=== PATIENT | female | born 1945 | race Caucasian/White ===

== ENCOUNTER 2020-02-19 11:38 | Outpatient (CLI) | payer MEDICARE, SELFPAY ==
--- NOTE | 2020-02-19 11:46 | MM_ITS ---
WS: [id number] BILATERAL DIGITAL SCREENING MAMMOGRAPHY WITH CAD CLINICAL INFORMATION: SCREENING HISTORY: Screening mammogram. No current complaints. COMPARISON: TECHNIQUE: Bilateral CC and MLO views. FINDINGS: Scattered fibroglandular densities bilaterally. No suspicious focal mass, asymmetry, calcifications, or architectural distortion. No evidence of malignancy. Punctate and secretory calcifications.. Inver lovely Nipples unchanged. MM/[place] [id number] IMPRESSION: BI-RADS: 2-Benign FOLLOW UP: 1 Year Follow-up Recommend return to annual screening mammography.
== END 2020-02-19 11:39 | disposition home or self-care (01) ==
LOC: RADSHAW 11:45
PROVIDERS: PCP Family Medicine; Visit Provider Family Medicine
DX: Z12.31 Encounter for screening mammogram for malignant neoplasm of breast (principal)
CPT/HCPCS: 77067

== ENCOUNTER 2020-05-08 16:57 | Emergency (ER) | payer MEDICARE, SELFPAY ==
[2020-05-08 17:08] VITALS: BP 133/83; PULSE 89; RESP 18; TEMP 37.3; O2SAT 92; BMI 26.6
--- NOTE | 2020-05-08 17:49 | XRR_ITS ---
PROCEDURE INFORMATION: Exam: XR Chest, 1 View Exam date and time: 05/08/2020 8:33 PM Age: 75 years old Clinical indication: Cough and fever and shortness of breath; Patient HX: Cough, fever, SOB TECHNIQUE: Imaging protocol: XR of the chest Views: 1 view. COMPARISON: No relevant prior studies available. FINDINGS: Lungs: Low lung volumes seen. There is is a linear parenchymal density in the left lower lobe . This may represent pleural fibrosis. Comparison to prior examination is recommended Pleural space: Unremarkable. No pleural effusion. No pneumothorax. Heart/Mediastinum: Unremarkable. No cardiomegaly. There is a hiatal hernia present Bones/joints: Unremarkable. XR/XR chest 1V portable [id number] IMPRESSION: No acute findings. Hiatal hernia Pleural fibrosis left lower lobe
[2020-05-08 18:09] LABS: ABG PH Result 7.48 (7.35-7.45); Arterial Blood Gas Hematocrit 40.6 % (37-47); Base Excess ABG 1.3 mmol/L (-2.0-2.0); Blood Gas Allen Test Pos; Blood Gas Operator Identificat ED; Blood Gas Sample Site Radial, left; Blood Gas Sample Type Arterial; Carboxyhemoglobin 1.3 %THgb (0.4-20.1); HCO3 ABG 24.3 mmol/L (22-26); HGB O2 Sat 91.5 % (95-100); Methemoglobin 0.6 % (0.4-1.5); Total Hemoglobin 13.3 g/dL (12-16)
[2020-05-08 20:01] VITALS: BP 159/84; PULSE 102; RESP 22; O2SAT 91
--- NOTE | 2020-05-08 20:06 | ECG_ITS ---
[facility] Test Date: 2020-05-08 Pat Name: Savanna Marsh Department: Room: Gender: Female Party Plan Demonstrator: : 1945 Requested By: Kenyatta Altamirano Order Number: [id number] Louise MD: Roxanne Lentz M.D. Measurements Intervals Cecil Rate: 86 P: [place]: -1 QRS: 98 QRSD: 100 T: 24 QT: 370 QTc: 443 Interpretive Statements SINUS RHYTHM BORDERLINE RIGHT AXIS DEVIATION [QRS AXIS > 90] INFERIOR MYOCARDIAL INFARCTION , PROBABLY OLD No previous ECG available for comparison Electronically Signed On 05-09-2020 8:11:14 CDT by Roxanne Lentz M.D. [email or web address] Classgalion community hospital.[employer]/store/OM/[id number]
--- NOTE | 2020-05-08 20:08 | W.ED.SOB ---
HPI - SOB/Dyspnea General: Chief Complaint: Shortness of Breath/Dyspnea Stated Complaint: FEVER,SOB,COUGH Time Seen by Provider: 05/08/20 19:58 Source: patient Mode of arrival: ambulatory Limitations: no limitations History of Present Illness: HPI Narrative: 75-year-old female who states she tested positive for COVID roughly 2 weeks ago. She states she is been having increasing body aches along with loss of taste and some dyspnea. Patient's pulse ox here is 92% on room air. She denies any vomiting or diarrhea. She has had low-grade fevers and body aches. She denies any chest pain. Associated symptoms: Deny abdominal pain, chest pain, nausea or vomiting Review of Systems Const: Reports: chills and body aches Eyes: Denies: blurry vision or eye discomfort ENMT: Denies: throat pain or dental pain Card: Denies: chest pain Resp: Reports: dyspnea GI: Denies: abdominal pain, nausea, vomiting or diarrhea : Denies: dysuria Musc: Denies: neck pain or back pain Skin/Breast: Denies: rash Neuro: Denies: headache(s) Psych: Denies: depression Schuyler/Lymph: Denies: easy bruising All/Imm: Denies: urticaria Physical Exam Const: COMMON NORMALS: no acute distress, patient oriented x3 and healthy appearing HENMT: COMMON NORMALS: normocephalic and atraumatic HEAD & SCALP: normocephalic and atraumatic Eye: COMMON NORMALS: Equal, round and reactive pupils present and EOMs intact bilaterally PUPIL: Yes Equal, round and reactive pupils present Neck/C-Spine: COMMON NORMALS: full ROM and supple Chest: COMMONS NORMALS: normal inspection of the chest and normal palpation of entire chest wall Resp: COMMON NORMALS: normal respiratory effort, No retractions, No use of accessory muscles and clear to auscultation bilaterally AUSCULTATION: clear to auscultation bilaterally Cardio: COMMON NORMALS: regular rate, regular rhythm and No murmurs present (Cardio) RATE: regular rate RHYTHM: regular rhythm GI: COMMON NORMALS: Normal to inspection, nondistended, normoactive bowel sounds present, Soft to palpation, non-tender and no masses PALPATION: Yes Soft to palpation Extremity: COMMON NORMALS: normal to inspection and full ROM Neuro: COMMON NORMALS: patient oriented x3, moves all extremities and no focal motor deficits Psych: COMMON NORMALS: mental status grossly normal, Normal thought process present and cooperative THOUGHT PROCESS: Normal thought process present Skin: COMMON NORMALS: no rashes or lesions noted and no wounds GENERAL SKIN EXAM: no rashes or lesions noted Course Vital Signs: Vital signs: Vital Signs Temperature 99.2 F 05/08/20 17:08 Pulse Rate 85 05/08/20 21:01 Respiratory Rate 19 H 05/08/20 21:01 Blood Pressure 122/71 05/08/20 21:01 Pulse Oximetry 90 05/08/20 21:01 MDM - SOB/Dyspnea MDM Narrative: Medical decision making narrative: There presents here shortness of breath likely from her COVID. X-ray shows no definite pneumonia but will start her on doxycycline. Patient inflammatory markers here are elevated and she is mildly hypoxic. I strongly recommended admission for her COVID. I informed her that we would have to transfer her as we have no beds. Patient states that she feels improved and does not want to be transferred. Patient is going to sign out AMA. She understands the risks including getting worse and even possible . She does have medical decision make capacity. Patient states that if she gets more short of breath she will return. She understands and agrees to plan. Lab Data: Labs: Lab Results 05/08/20 05/08/20 05/08/20 Range/Units 18:00 20:25 20:25 WBC 15.3 H (4.0-10.0) 10^3/ uL RBC 4.99 (4.1-5.3) 10^6/u L Hgb 13.3 (11.5-15.3) g/dL Hct 43.0 (37.0-47.0) % MCV 86.2 (81-99) fL MCH 26.7 L (28.0-34.0) pg MCHC 30.9 (30.0-36.0) g/dL RDW 15.9 H (12.1-15.1) % Plt Count 266 (130-400) 10^3/c mm MPV 11.6 H (7.4-10.4) fL Neut % (Auto) 75.4 % Lymph % (Auto) 15.0 % [place] % (Auto) 8.8 % Eos % (Auto) 0.1 % Baso % (Auto) 0.2 % Neut # (Auto) 11.54 H (1.8-7.7) 10^3/u L Lymph # (Auto) 2.3 (0.8-4.8) 10^3/u L [place] # (Auto) 1.4 H (0.2-0.9) 10^3/u L Eos # (Auto) 0.0 (0.0-0.8) 10^3/u L Baso # (Auto) 0.0 (0.0-0.1) 10^3/u L Nucleated RBC % (a uto) 0 % Nucleated RBCs # 0.0 /100WBC PT 15.00 H (12.1-14.9) SECO NDS INR 1.14 (0.8-1.2) Fibrinogen (174-498) mg/dL Specimen Type Arterial Sample Site Radial, left ABG pH 7.48 H (7.35-7.45) ABG pCO2 33.0 L (35-45) mmHg ABG pO2 62.0 L (80.0-100.0) mmH g ABG HCO3 24.3 (22-26) mmol/L ABG Base Excess 1.3 (-2.0-2.0) mmol/ L Aung Test Pos Hematocrit 40.6 (37-47) % Hgb O2 Saturation 91.5 L (95-100) % Carboxyhemoglobin 1.3 (0.4-20.1) %THgb Methemoglobin 0.6 (0.4-1.5) % Total Hemoglobin 13.3 (12-16) g/dL O2 Delivery Device None FiO2 21.0 % Mechanic Recovery ID Ed Sodium (136-145) mmol/L Potassium (3.5-5.1) mmol/L Chloride (98-107) mmol/L Carbon Dioxide (22-29) mmol/L Anion Gap (5-19) BUN (8-23) mg/dL Creatinine (0.5-0.9) mg/dL GFR Calculation Glucose (65-115) mg/dL Calculated Osmolal ity (285-295) mOsm/k g Calcium (8.5-10.5) mg/dL Total Bilirubin (0.15-1.2) mg/dL AST (0-32) U/L ALT (0-33) U/L Alkaline Phosphata se (35-105) IU/L C-Reactive Protein (0.0-4.9) mg/L NT-Pro-B Natriuret Pep (0-450) pg/mL Total Protein (6.6-8.7) g/dL Albumin (3.5-5.2) g/dL Globulin (1.3-4.6) g/dL 05/08/20 05/08/20 05/08/20 Range/Units 20:25 20:25 20:25 WBC (4.0-10.0) 10^3/ uL RBC (4.1-5.3) 10^6/u L Hgb (11.5-15.3) g/dL Hct (37.0-47.0) % MCV (81-99) fL MCH (28.0-34.0) pg MCHC (30.0-36.0) g/dL RDW (12.1-15.1) % Plt Count (130-400) 10^3/c mm MPV (7.4-10.4) fL Neut % (Auto) % Lymph % (Auto) % [place] % (Auto) % Eos % (Auto) % Baso % (Auto) % Neut # (Auto) (1.8-7.7) 10^3/u L Lymph # (Auto) (0.8-4.8) 10^3/u L [place] # (Auto) (0.2-0.9) 10^3/u L Eos # (Auto) (0.0-0.8) 10^3/u L Baso # (Auto) (0.0-0.1) 10^3/u L Nucleated RBC % (a uto) % Nucleated RBCs # /100WBC PT (12.1-14.9) SECO NDS INR (0.8-1.2) Fibrinogen 1123 H (174-498) mg/dL Specimen Type Sample Site ABG pH (7.35-7.45) ABG pCO2 (35-45) mmHg ABG pO2 (80.0-100.0) mmH g ABG HCO3 (22-26) mmol/L ABG Base Excess (-2.0-2.0) mmol/ L Aung Test Hematocrit (37-47) % Hgb O2 Saturation (95-100) % Carboxyhemoglobin (0.4-20.1) %THgb Methemoglobin (0.4-1.5) % Total Hemoglobin (12-16) g/dL O2 Delivery Device FiO2 % Mechanic Recovery ID Sodium 136 (136-145) mmol/L Potassium 4.4 (3.5-5.1) mmol/L Chloride 99 (98-107) mmol/L Carbon Dioxide 22 (22-29) mmol/L Anion Gap 19.4 H (5-19) BUN 19 (8-23) mg/dL Creatinine 0.9 (0.5-0.9) mg/dL GFR Calculation Not Reportable Glucose 123 H (65-115) mg/dL Calculated Osmolal ity 286 (285-295) mOsm/k g Calcium 9.0 (8.5-10.5) mg/dL Total Bilirubin 0.7 (0.15-1.2) mg/dL AST 29 (0-32) U/L ALT 19 (0-33) U/L Alkaline Phosphata se 83 (35-105) IU/L C-Reactive Protein 317.5 H (0.0-4.9) mg/L NT-Pro-B Natriuret Pep 200 (0-450) pg/mL Total Protein 7.6 (6.6-8.7) g/dL Albumin 3.7 (3.5-5.2) g/dL Globulin 3.9 (1.3-4.6) g/dL EKG Data^: EKG 1: Attestation: I personally reviewed and interpreted this EKG as follows: EKG Interpretation Date: 05/08/20 EKG interpretation time: 20:14 Interpretation: nsr hr [address] or t wave abnormalities qrs 100 qtc 413 Discharge Plan Discharge Patient Disposition: Left Against Medical Advice Clinical Impression: COVID-19 Condition: Stable Prescriptions: New doxycycline hyclate 100 mg tablet 100 mg PO BID 7 Days Qty: 14 RF: 0 No Action Stool Softener (docusate gareth) 240 mg Capsule 240 mg PO DAILY RF: 0 Aspirin Low Dose 81 mg Tablet,Delayed Release (Dr/Ec) 81 mg PO DAILY RF: 0 ibuprofen 200 mg Tablet 200 - 400 mg PO Q4H PRN (Reason: FEVER/PAIN) RF: 0 atenolol 50 mg tablet 50 mg PO DAILY RF: 0 Osteo Bi-Flex 250-200 mg Tablet 2 tab PO TID RF: 0 krill oil 1 tab PO DAILY RF: 0 Discharge Orders: Discharge Order (Routine); Ordered 05/08/20 Ordered By: Kenyatta Altamirano Referrals: Meagan Shah MD [Primary Care Provider] - 1-3 days Discharge Diet: Advance as tolerated Discharge Activity: Resume usual activity Patient Instructions: Upper Respiratory Infection (ED) Coding Level of Care Code ED Caustic Purification Operator for Chg Fwd Exam Comprehensive
[2020-05-08 20:37] LABS: Basophils % 0.2 %; Eosinophils % 0.1 %; Hemoglobin 13.3 g/dL (11.5-15.3); Lymphocytes # 2.3 10^3/uL (0.8-4.8); Mean Corpuscular HGB Conc 30.9 g/dL (30.0-36.0); Mean Corpuscular Hemoglobin 26.7 pg (28.0-34.0); Mean Corpuscular Volume 86.2 fL (81-99); Mean Platelet Volume 11.6 fL (7.4-10.4); Monocytes # 1.4 10^3/uL (0.2-0.9); Monocytes % 8.8 %; Neutrophils # 11.54 10^3/uL (1.8-7.7); Neutrophils % 75.4 %; Nucleated Red Blood Cells % 0 %; Platelet Count 266 10^3/cmm (130-400); Red Blood Count 4.99 10^6/uL (4.1-5.3); Red Cell Distribution Width 15.9 % (12.1-15.1); White Blood Count 15.3 10^3/uL (4.0-10.0)
[2020-05-08] MEDS: ketorolac 30 mg/mL INJ 10 MG IVP (20:47)
[2020-05-08] MEDS: dexamethasone 10 mg/mL INJ IVP (20:47)
[2020-05-08 20:58] LABS: INR 1.14 (0.8-1.2)
[2020-05-08 21:01] VITALS: BP 122/71; PULSE 85; RESP 19; O2SAT 90
[2020-05-08 21:06] LABS: C Reactive Protein 317.5 mg/L (0.0-4.9)
[2020-05-08 21:17] LABS: Alanine Aminotransferase 19 U/L (0-33); Albumin Level 3.7 g/dL (3.5-5.2); Alkaline Phosphatase 83 IU/L (35-105); Anion Gap 19.4 (5-19); Aspartate Amino Transferase 29 U/L (0-32); Blood Urea Nitrogen 19 mg/dL (8-23); Carbon Dioxide 22 mmol/L (22-29); Chloride 99 mmol/L (98-107); Globulin 3.9 g/dL (1.3-4.6); Glucose 123 mg/dL (65-115); NT Pro B Type Natriuretic Pept 200 pg/mL (0-450); Osmolality Calculated 286 mOsm/kg (285-295); Potassium 4.4 mmol/L (3.5-5.1); Sodium 136 mmol/L (136-145); Total Bilirubin 0.7 mg/dL (0.15-1.2); Total Protein 7.6 g/dL (6.6-8.7)
[2020-05-08 21:19] LABS: Fibrinogen 1123 mg/dL (174-498)
[2020-05-08 22:03] VITALS: BP 139/74; PULSE 82; RESP 19; O2SAT 90
== END 2020-05-08 22:03 | disposition left against medical advice (07) ==
PROVIDERS: Emergency Provider Emergency Medicine; PCP Family Medicine
DX: U07.1 COVID-19 (principal); Z53.21 Procedure and treatment not carried out due to patient leaving prior to being seen by health care provider; Z79.82 Long term (current) use of aspirin
CPT/HCPCS: 12345; 36600; 71045; 80053; 82805; 83880; 85025; 85384; 85610; 86140; 93005; 96374; 96375; 99282; 99284; J1100; J1885

== ENCOUNTER 2021-03-03 08:44 | Outpatient (CLI) | payer MEDICARE, SELFPAY ==
[2021-03-03 09:44] VITALS: BMI 31.1
--- NOTE | 2021-03-03 09:44 | ECG_ITS ---
[facility] Test Date: 2021-03-03 Pat Name: Savanna Marsh Department: Room: Gender: Female Silk Trimmer: : 1945 Requested By: Meagan Gordon Order Number: [id number] Louise MD: Roxanne Lentz M.D. Interpretive Statements NAME OF STUDY: LEXISCAN SESTAMIBI STRESS TEST INDICATION: Shortness of Breath PROCEDURE: At the baseline, the blood pressure was 153/73 mmHg with a heart rate of 42 bpm and oxygen saturation 93%. The electrocardiogram showed sinus bradycardia, right axis deviation with possible chest lead reversal. The Lexiscan was infused over a period of 20 seconds. A total of 0.4 milligrams of Lexiscan was infused. The stress phase was continued for a total of 5 minutes. Heart rate at the end of the stress phase was 61 bpm, oxygen saturation 92% with a blood pressure of 138/68 mmHg. The EKG at the peak infusion revealed sinus rhythm with no significant ST-T wave changes. The study was terminated due to protocol completion. Sestamibi was injected 20 seconds after the Lexiscan infusion. Blood pressure at the end of the recovery phase was 138/73 mmHg, oxygen saturation 91% with a heart rate of 62 beats per minute. CONCLUSION: 1. No significant EKG changes with the LexiScan infusion. 2. No LexiScan induced chest pain or cardiac arrhythmia. 3. Normal blood pressure and heart rate response. 4. Sestamibi/sestamibi perfusion scan pending; see separate report. Electronically Signed On 03-03-2021 18:28:02 CDT by Roxanne Lentz M.D. [email or web address]/[id number]
--- NOTE | 2021-03-03 09:45 | NMCV_ITS ---
NM marc perf SPECT r/s* [id number] Savanna Marsh Age: 75 Gender: F : 1945 Exam Date: 03/03/2021 10:53 Ordering Phys: Meagan Shah MD Technologist: RAQUEL Avilez Exam Location: [facility] Indications: DYSPNEA STRESS TEST Please see separate stress test report in [facility] for full findings IMAGE PROTOCOL Rest/Stress 1 Lexiscan Day Radiopharmaceutical Dose (mCi) Administration Site Administered by Rest: Tc-99m 10.9 IV RAQUEL Donaldson Sestamibi Stress:Tc-99m 32.4 IV RAQUEL Donaldson Sestamibi Rest: 03-Mar-2021 60 Discovery 630 Stress: 03-Mar-2021 30 Discovery 630 0.4mg Lexiscan. Supine position only as patient was unable to lay prone. SPECT RESULTS Technical Quality: Good Raw Data Analysis: Subdiaphragmatic attenuation artifact Image Corrections: No attenuation or motion correction applied Summed Stress Score: 7 Summed Rest Score: 10 Summed Difference Score: 1 PERFUSION FINDINGS Medium size perfusion abnormality of mild to moderate severity of basal to mid inferolateral, mid to apical inferior, apical lateral and apical ascencio on rest images slightly improved tracer uptake in inferior and apical lateral wall on stress images. FUNCTIONAL RESULTS (calculated via Gated SPECT) Stress Image LV EF (%): 69 Stress EDV (mL):96 TID: 1.13 Stress ESV (mL):30 FUNCTIONAL FINDINGS: The left ventricle is normal in size. Transient Ischemia Dilatation of 1.1. There is normal left ventricular systolic function. The left ventricular ejection fraction is normal with a value of 69%. There is normal left ventricular wall thickening with no regional wall motion abnormality. Normal end-diastolic end-systolic volumes. IMPRESSIONS 1. Medium sized perfusion abnormality of mild to moderate severity of basal to mid inferolateral, mid to apical inferior, apical lateral and apical ascencio with somewhat improved tracer uptake in inferior and apical lateral wall on stress images. 2. This may represent attenuation artifact or old myocardial infarction. 3. Overall left ventricular systolic function is normal without regional wall motion abnormalities. 4. The left ventricular ejection fraction is normal with a value of 69%. 5. No coronary ischemia based on the study. Roxanne Lentz MD (Electronically Signed) Final Date: 08 March 2021 11:14 S
[2021-03-03] MEDS: regadenoson 0.4 Mg/5 ml Syringe IVP (11:27)
[2021-03-03 11:37] VITALS: BP 138/73; PULSE 63
== END 2021-03-03 08:45 | disposition home or self-care (01) ==
PROVIDERS: PCP Family Medicine; Visit Provider Family Medicine
DX: R06.00 Dyspnea, unspecified (principal)
CPT/HCPCS: 78452; 93017; A9500; J2785

== ENCOUNTER 2021-09-02 13:40 | Outpatient (CLI) | payer MEDICARE, SELFPAY ==
--- NOTE | 2021-09-02 13:54 | MM_ITS ---
WS: [id number] BILATERAL DIGITAL SCREENING MAMMOGRAPHY WITH CAD CLINICAL INFORMATION: SCREENING HISTORY: Screening mammogram. No current complaints. COMPARISON: February 19, 2020 TECHNIQUE: Bilateral CC and MLO views. FINDINGS: Scattered fibroglandular densities bilaterally. Diffuse scattered Punctate and secretory calcificatio ns. Lucent centered calcifications. No suspicious focal mass, asymmetry, calcifications, or senior sharepoint architect ural distortion. No evidence of malignancy. MM/[place] [id number] IMPRESSION: BI-RADS: 2-Benign FOLLOW UP: 1 Year Follow-up Recommend return to annual screening mammography.
== END 2021-09-02 13:41 | disposition home or self-care (01) ==
LOC: RADSHAW 13:52
PROVIDERS: PCP Family Medicine; Visit Provider Family Medicine
DX: Z12.31 Encounter for screening mammogram for malignant neoplasm of breast (principal)
CPT/HCPCS: 77067

== ENCOUNTER 2021-09-06 16:16 | Outpatient (CLI) | payer MEDICARE, SELFPAY ==
--- NOTE | 2021-09-06 16:58 | XR_ITS ---
WS: [id number] SCREENING DEXA SCAN [employer] CLINICAL INFORMATION: ASYMTOMATIC MENOPAUSAL STATE COMPARISON: None. FINDINGS: The L1-L4 bone mineral density measures 1.077 g/cm2. This corresponds to a T score score of -0.9 and Z score of 0.5. Left femoral neck bone mineral density measures 0.844 g/cm2. This corresponds to a T score of -1.3 an d Z score of 0.2. Right femoral neck bone mineral density measures 0.706 g/cm2. This corresponds to a T score -2.4of an d Z score of -0.9. Mean femoral neck bone mineral density measures 0.775 g/cm2. This corresponds to a T score of -1.8 an d Z score of -0.3. XR/XR DEXA axial skeleton* [id number] IMPRESSION: Normal bone mineralization in the lumbar spine. Osteopenia in the femoral necks . Patient's FRAX calculated 10 year probability for major osteoporotic fracture i s 24.9 % and osteoporotic hip fracture is 7.7%.
== END 2021-09-06 16:17 | disposition home or self-care (01) ==
LOC: RAD 16:18
PROVIDERS: PCP Family Medicine; Visit Provider Family Medicine
DX: Z78.0 Asymptomatic menopausal state (principal)
CPT/HCPCS: 77080

== ENCOUNTER 2022-09-06 09:44 | Outpatient (CLI) | payer MEDICARE, SELFPAY ==
--- NOTE | 2022-09-06 10:02 | MM_ITS ---
WS: [id number] Bilateral screening 3D tomosynthesis digital mammogram, 09/06/2022 Clinical Data: SCREENING Comparison: 09/02/2021, 02/19/2020, 12/17/2018, 11/29/2017, 07/11/2016, 07/08/2015, 06/24/2014. Findings: The breast parenchymal pattern shows fibroglandular tissue. No spiculated masses or clustered calcifi cations are seen. There are no secondary signs of carcinoma. There are numerous benign and vascular c alcifications throughout both breasts. MM/[place] [id number] Impression: 1. Negative bilateral mammogram unchanged. 2. Recommend annual screening mammograms. BIRADS: 1-Negative FOLLOW UP: 1 Year Follow-up The CAD color checker was used.
== END 2022-09-06 09:45 | disposition home or self-care (01) ==
LOC: RAD 09:48
PROVIDERS: PCP Family Medicine; Visit Provider Family Medicine
DX: Z12.31 Encounter for screening mammogram for malignant neoplasm of breast (principal)
CPT/HCPCS: 77063; 77067

== ENCOUNTER → 2023-06-02 08:03 | Outpatient (BNVA) | payer MEDICARE, SELFPAY | PROVIDERS: PCP Nurse Practitioner Family; Visit Provider Otolaryngology | DX: R26.81 Unsteadiness on feet (principal); H93.13 Tinnitus, bilateral | CPT/HCPCS: 99203; 99204 ==

== ENCOUNTER 2024-01-02 13:03 | Outpatient (CLI) | payer MEDICARE, SELFPAY ==
--- NOTE | 2024-01-02 13:16 | XR_ITS ---
WS: [id number] SCREENING DEXA SCAN [employer] CLINICAL INFORMATION: ASYMPTOMATIC MENOPAUSAL STATE COMPARISON: 2021 FINDINGS: The L1-L4 bone mineral density measures 1.199 g/cm2. This corresponds to a T score score of 0.2 and Z score of 1.5. Left femoral neck bone mineral density measures 0.868 g/cm2. This corresponds to a T score of -1.1 an d Z score of 0.5. Right femoral neck bone mineral density measures 0.743 g/cm2. This corresponds to a T score -2.1of an d Z score of -0.5. Mean femoral neck bone mineral density measures 0.805 g/cm2. This corresponds to a T score of -1.6 an d Z score of 0.0. XR/XR DEXA axial skeleton* [id number] IMPRESSION: Normal bone mineralization lumbar spine. Osteopenia femoral necks. Patient's FRAX calculated 10 year probability for major osteoporotic fracture i s 23.6% and osteoporotic hip fracture is 6.8%. Bone mineral density of the lumbar spine increased 11.3% bone mineral density femoral necks increased 3.9%
== END 2024-01-02 13:04 | disposition home or self-care (01) ==
LOC: RAD 13:03
PROVIDERS: PCP Nurse Practitioner Family; Visit Provider Family Medicine
DX: Z78.0 Asymptomatic menopausal state (principal); M85.88 Other specified disorders of bone density and structure, other site
CPT/HCPCS: 77080

== ENCOUNTER → 2024-06-10 13:01 | Outpatient (BNVA) | payer MEDICARE, SELFPAY | PROVIDERS: PCP Nurse Practitioner Family; Visit Provider Nurse Practitioner Family | DX: I10 Essential (primary) hypertension (principal); R53.83 Other fatigue; R06.00 Dyspnea, unspecified | CPT/HCPCS: 80053; 80061; 83880; 84439; 84443; 85025; 93005 ==

== ENCOUNTER 2024-06-13 16:07 | Observation (INO) | payer MEDICARE, SELFPAY ==
[2024-06-13] VITALS (7 sets, daily range): BP systolic 156–175; BP diastolic 59–79; PULSE 48–59; RESP 16–18; TEMP 36.9–37.1; O2SAT 90–97
--- NOTE | 2024-06-13 16:38 | XRR_ITS ---
PROCEDURE INFORMATION: Exam: XR Chest Exam date and time: 06/13/2024 4:54 PM Age: 79 years old Clinical indication: Cough; Additional info: Dyspnea/cough TECHNIQUE: Imaging protocol: Radiologic exam of the chest. Views: 1 view. COMPARISON: CR XR chest 1V portable [id number] 05/08/2020 8:22 PM FINDINGS: Lungs: Low lung volumes. Mildly improved aeration in the left lung base with some ongoing opacity/fibrosis. Pleural spaces: Unremarkable. No pleural effusion. No pneumothorax. Heart/Mediastinum: Large hiatal hernia. Bones/joints: Unremarkable. XR/XR chest 1V portable [id number] IMPRESSION: 1. Large hiatal hernia. 2. 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
--- NOTE | 2024-06-13 17:02 | ED_ITS ---
HPI - Recheck/Abnormal Lab/Rx 2 General: Chief Complaint: Recheck/Abnormal Lab/Rx Stated Complaint: Dr Orr sent down low hemoglobin Time Seen by Provider: 06/13/24 17:02 History of Present Illness: 79-year-old female presents to the emerg ency room at the direction of the cardiology clinic. She been seen by her primary care doctor and found to have Left bundle branch block she also had some lab work done she was referred to the cardiology clinic her hemoglobin came back at 6.8 she was sent to the emergency room. She states she had some rectal pain in November of this year after a large bowel movement had a little bit of blood but that seemed to resolve and she has not had any further blood no dark tarry stools no hematemesis or coffee-ground emesis. She does take aspirin 81 mg daily but denies taking large amounts of ibuprofen or Aleve on a regular basis. She is not having any chest pain at this time. She does notice significant shortness of breath with exertion. Related Data Home Medications Medication Instructions Recorded Confirmed aspirin 81 mg tablet,delayed 81 mg PO DAILY 05/08/20 06/13/24 release (Priscila Low Dose Aspirin) docusate calcium 240 mg capsule 240 mg PO DAILY 05/08/20 06/13/24 (Stool Softener (docusate calcium)) ibuprofen 200 mg tablet 200 - 400 mg PO Q4H PRN FEVER/PAIN 05/08/20 06/13/24 multivitamin with minerals-folic 2 tab PO DAILY 06/13/24 06/13/24 acid 200 mcg chewable tablet (Multivitamin Gummies) Previous Rx's Medication Instructions Recorded cefdinir 300 mg capsule 300 mg PO BID 5 days #10 caps 06/16/24 ferrous sulfate 324 mg (65 mg 324 mg PO DAILY #30 tabs 06/16/24 iron) tablet,delayed release losartan 50 mg tablet 100 mg (2 x 50 mg) PO DAILY #30 06/16/24 tabs Allergies Allergy/AdvReac Type Severity Reaction Status Date / Time amlodipine Allergy Unknown unknown Verified 06/13/24 16:22 amoxicillin Allergy Unknown Unknown Verified 06/13/24 16:22 azithromycin [From Zithromax] Allergy Unknown unknown Verified 06/13/24 16:22 cetirizine [From Zyrtec] Allergy Unknown unknown Verified 06/13/24 16:22 choline fenofibrate Allergy Unknown unknown Verified 06/13/24 16:22 [From Trilipix] clonidine Allergy Unknown unknown Verified 06/13/24 16:22 ezetimibe [From Zetia] Allergy Unknown unknown Verified 06/13/24 16:22 moexipril Allergy Unknown Unknown Verified 06/13/24 16:22 Review of Systems 2 Const: Denies: fever(s) or chills Card: Denies: chest pain Resp: Reports: dyspnea GI: Denies: abdominal pain : Denies: dysuria, urinary frequency or urinary urgency Musc: Denies: neck pain or back pain Skin/Breast: Denies: rash PFSH ED 2 PFSH: Medical History LBBB (left bundle branch block) Benign essential HTN Aortic valve stenosis, acquired RBBB (right bundle branch block) Social History Smoking and tobacco/nicotine status: never used tobacco/nicotine Physical Exam 2 Const: GENERAL APPEARANCE: cooperative ORIENTATION/CONSCIOUSNESS: Yes awake, Yes oriented to person, Yes oriented to place and Yes oriented to time HENMT: COMMON NORMALS: normocephalic, atraumatic and hearing grossly normal bilaterally HEAD & SCALP: normocephalic and atraumatic Resp: COMMON NORMALS: normal respiratory effort, No retractions, No use of accessory muscles and clear to auscultation bilaterally AUSCULTATION: clear to auscultation bilaterally Cardio: COMMON NORMALS: regular rate and regular rhythm RATE: regular rate RHYTHM: regular rhythm OTHER: Grade 4/6 systolic murmur. Best heard at the right sternal border radiates to the apex. Murmur also radiates to the left axilla. GI: COMMON NORMALS: Soft to palpation and No hepatosplenomegaly present A USCULTATION: Yes normoactive bowel sounds PALPATION: Yes Soft to palpation, No Tenderness to palpation present (GI), No Guarding due to palpation present (GI) and Yes No hepatosplenomegaly present Extremity: COMMON NORMALS: normal to inspection, capillary refill normal, no clubbing, cyanosis or edema, no calf tenderness and no pedal edema Neuro: SENSORIUM/ORIENTATION: Yes oriented to person, Yes oriented to place and Yes oriented to time Skin: COMMON NORMALS: no rashes or lesions noted GENERAL SKIN EXAM: no rashes or lesions noted Course 2 Vital Signs: Vital signs: Vital Signs Temperature 98.1 F 06/16/24 16:00 Pulse Rate 58 L 06/16/24 16:26 Respiratory Rate 15 06/16/24 16:00 Blood Pressure 187/80 06/16/24 16:00 Pulse Oximetry 94 06/16/24 16:00 Oxygen Delivery Me thod Room Air 06/16/24 16:00 MDM - Recheck/Abnormal Lab/Rx Medical Decision Making Significant microcytic anemia. Bedside Hemoccult was negative. We have ordered a unit of blood. Discussed with hospitalist will admit. Medical Records I reviewed the patient's medical records. Lab Data I reviewed the patient's lab results. 06/16/24 16:09 06/15/24 02:43 Radiology Impressions Chest X-Ray 06/13/24 16:38 IMPRESSION: 1. Large hiatal hernia. 2. 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 Carotid Doppler Study 06/16/24 11:23 IMPRESSION: No carotid arterial stenosis. REFERENCES: SRU CRITERIA. The degree of internal carotid artery stenosis is based on criteria defined by the Society of Radiologists in Ultrasound (SRU). Normal is no stenosis. Mild is less than 50% stenosis. Moderate is 50-69% stenosis. Severe is greater than 69% stenosis to near occlusion. Near occlusion is a markedly narrowed lumen. Total occlusion is no detectable patent lumen. Laboratory Results WBC 6.15 10^3/uL (3.29-11.43) 06/13/24 17:24 RBC 3.64 10^6/uL (3.85-5.65) L 06/13/24 17:24 Hgb Cancelled 06/13/24 18:15 Hct Cancelled 06/13/24 18:15 MCV 72.8 fl (85-98) L 06/13/24 17:24 MCH 18.4 pg (27-33) L 06/13/24 17:24 MCHC 25.3 g/dL (30-55) L 06/13/24 17:24 RDW 21.7 % (12.1-15.1) H 06/13/24 17:24 Plt Count 297 10^3/cmm (157-399) 06/13/24 17:24 MPV 10.1 fL (7.4-10.4) 06/13/24 17:24 Neut % (Auto) 64.8 % 06/13/24 17:24 Lymph % (Auto) 17.4 % 06/13/24 17:24 Navarro % (Auto) 10.4 % 06/13/24 17:24 Eos % (Auto) 6.3 % 06/13/24 17:24 Baso % (Auto) 0.8 % 06/13/24 17:24 Reticulocyte % (Auto) 1.8 % (0.5-2.0) 06/13/24 17:24 Neut # (Auto) 3.98 10^3/uL (1.8-7.7) 06/13/24 17: Lymph # (Auto) 1.1 10^3/uL (0.8-4.8) 06/13/24 17:24 Navarro # (Auto) 0.6 10^3/uL (0.2-0.9) 06/13/24 17:24 Eos # (Auto) 0.4 10^3/uL (0.0-0.8) 06/13/24 17:24 Baso # (Auto) 0.1 10^3/uL (0.0-0.1) 06/13/24 17:24 Nucleated RBC % (auto) 0 % 06/13/24 17: Nucleated RBCs # 0.0 /100WBC 06/13/24 17:24 Peripher Smr Path Cons Sent for review 06/13/24 17:24 Haptoglobin 201.0 mg/L (30-200) H 06/13/24 17:24 PT Cancelled 06/13/24 18:07 INR Cancelled 06/13/24 18:07 APTT 39.1 SECONDS (23.9-36.7) H 06/13/24 17:24 Sodium 142 mmol/L (136-145) 06/13/24 17:24 Potassium 4.7 mmol/L (3.5-5.1) 06/13/24 17:24 Chloride 109 mmol/L (98-107) H 06/13/24 17:24 Carbon Dioxide 22 mmol/L (22-29) 06/13/24 17:24 Anion Gap 15.7 (5-19) 06/13/24 17:24 BUN 28 mg/dL (8-23) H 06/13/24 17:24 Creatinine 1.5 mg/dL (0.5-0.9) H 06/13/24 17:24 GFR Calculation Not Reportable 06/13/24 17:24 Glucose 99 mg/dL (65-115) 06/13/24 17:24 Calculated Osmolality 300 mOsm/kg (285-295) H 06/13/24 17:24 Calcium 8.8 mg/dL (8.5-10.5) 06/13/24 17:24 Iron 17 ug/dL (37-145) L 06/13/24 17:24 TIBC 429 mcg/dl 06/13/24 17:24 % Saturation 3.9 % (20-50) L 06/13/24 17:24 Unsat Iron Binding 412 ug/dL (112-347) H 06/13/24 17:24 Ferritin 12 ng/mL (15-150) L 06/13/24 17:24 Total Bilirubin 0.2 mg/dL (0.15-1.2) 06/13/24 17:24 AST 18 U/L (0-32) 06/13/24 17:24 ALT 11 U/L (0-33) 06/13/24 17:24 Alkaline Phosphatase 91 U/L (35-105) 06/13/24 17:24 Lactate Dehydrogenase 205 U/L (135-214) 06/13/24 17:24 NT-Pro-B Natriuret Pep 870 pg/mL (0-450) H 06/13/24 17:24 Total Protein 7.4 g/dL (6.6-8.7) 06/13/24 17:24 Albumin 4.1 g/dL (3.5-5.2) 06/13/24 17:24 Globulin 3.3 g/dL (1.3-4.6) 06/13/24 17:24 Vitamin B12 1077 pg/mL (232-1245) 06/13/24 17:24 Homocysteine 13.15 umol/l (0-15) 06/13/24 17:24 TSH 1.71 uIU/mL (0.27-4.20) 06/13/24 17:24 Blood Type B Positive 06/13/24 17:24 Rho(D) Type Rh positive 06/13/24 17:24 Antibody Screen Negative 06/13/24 17:24 CARLY, Poly Interpret Negative 06/13/24 17:24 Crossmatch See Detail 06/13/24 17:24 All radiology interpretation(s) finalized by discharge Discharge Plan Discharge Patient Disposition: Admitted As Inpatient Admit Provider: Desiree Gilbert Clinical Impression: Severe anemia, Benign essential HTN, Aortic valve stenosis, acquired Condition: Stable Discharge Diet: Cardiac Discharge Activity: Resume usual activity Coding Level of Care Code ED Generator Technician for [place]
[2024-06-13 17:39] LABS: Basophils # 0.1 10^3/uL (0.0-0.1); Basophils % 0.8 %; Eosinophils # 0.4 10^3/uL (0.0-0.8); Eosinophils % 6.3 %; Hematocrit 26.5 % (36-47); Lymphocytes # 1.1 10^3/uL (0.8-4.8); Lymphocytes % 17.4 %; Mean Corpuscular HGB Conc 25.3 g/dL (30-55); Mean Corpuscular Hemoglobin 18.4 pg (27-33); Mean Corpuscular Volume 72.8 fl (85-98); Mean Platelet Volume 10.1 fL (7.4-10.4); Monocytes # 0.6 10^3/uL (0.2-0.9); Monocytes % 10.4 %; Neutrophils # 3.98 10^3/uL (1.8-7.7); Neutrophils % 64.8 %; Nucleated Red Blood Cells % 0 %; Platelet Count 297 10^3/cmm (157-399); Red Blood Count 3.64 10^6/uL (3.85-5.65); Red Cell Distribution Width 21.7 % (12.1-15.1); White Blood Count 6.15 10^3/uL (3.29-11.43)
[2024-06-13 17:56] LABS: INR 1.11 (0.8-1.2)
[2024-06-13 17:57] LABS: Alanine Aminotransferase 11 U/L (0-33); Albumin Level 4.1 g/dL (3.5-5.2); Alkaline Phosphatase 91 U/L (35-105); Anion Gap 15.7 (5-19); Aspartate Amino Transferase 18 U/L (0-32); Carbon Dioxide 22 mmol/L (22-29); Chloride 109 mmol/L (98-107); Globulin 3.3 g/dL (1.3-4.6); Glucose 99 mg/dL (65-115); Partial Thromboplastin Time 39.1 SECONDS (23.9-36.7); Potassium 4.7 mmol/L (3.5-5.1); Sodium 142 mmol/L (136-145); Total Protein 7.4 g/dL (6.6-8.7)
--- NOTE | 2024-06-13 18:12 | P.HP_ITS ---
Providers/Chief Complaint 2 Primary Care Provider: RICHARD Olmedo Chief Complaint: Dr Orr sent down low hemoglobin History of Present Illness Savanna Marsh is a 79 year old female With past medical history of hypertension, hemorrhoids, and chronic constipation for which she takes daily laxative presented to the hospital after being sent in by cardiology for shortness of breath secondary to most likely anemia. She apparently saw cardiology few weeks ago and was given some blood work to do. It revealed a hemoglobin of 6.9. Today she went to see the workers compensation attorney in the clinic and upon reviewing lab results she was asked to go to the ER for workup of anemia. Patient denies blood in stools, blood in urine however does state that from time to time secondary to severe constipation and hard stools she will sometimes have rectal bleeding. She does endorse having a history of hemorrhoids however did not provide many details about it. She states she has been healthy all her life. She only takes atenolol at home for blood pressure. Does not know the dosage of this. Has never been diagnosed with cancer. Denies any vaginal bleeding at this time. States has never been diagnosed with anemia before. Denies lightheadedness dizziness chest pain shortness of breath abdominal pain nausea vomiting. On arrival to ER blood pressure 175/75 saturating 97% on room air. Hemoglobin repeated noted to be 6.7. No evidence of active bleeding. Of note patient does have a left bundle branch block on EKG. Apparently she does have a history of a bundle branch block which was thought to be right bundle branch block versus left. No one is sure about this. Discussed with Dr. Orr as well. At this time he recommends workup for anemia. We will check an echocardiogram to rule out wall motion abnormalities. Medications/Allergies Home Medications Medication Instructions Recorded Confirmed Last Taken Type aspirin 81 mg tablet,delayed 81 mg PO DAILY 05/08/20 06/10/24 Unknown History release (Priscila Low Dose Aspirin) docusate calcium 240 mg capsule 240 mg PO DAILY 05/08/20 06/10/24 Unknown History (Stool Softener (docusate calcium)) ibuprofen 200 mg tablet 200 - 400 mg PO Q4H PRN FEVER/PAIN 05/08/20 06/10/24 05/08/20 History albuterol sulfate 90 mcg/actuation 2 inh inhalation QID PRN shortness 01/12/23 06/10/24 Unknown Rx aerosol inhaler of breath or wheezing #6.7 grams fluticasone propionate 50 2 spray intranasal DAILY #16 grams 04/11/23 06/10/24 Unknown Rx mcg/actuation nasal spray,suspension atenolol 100 mg tablet mg PO 06/10/24 06/10/24 Unknown History losartan 50 mg tablet 50 mg PO DAILY #30 tabs 06/13/24 06/13/24 Unknown Rx Allergies Allergy/AdvReac Type Severity Reaction Status Date / Time amlodipine Allergy Unknown unknown Verified 06/13/24 16:22 amoxicillin Allergy Unknown Unknown Verified 06/13/24 16:22 azithromycin [From Zithromax] Allergy Unknown unknown Verified 06/13/24 16:22 cetirizine [From Zyrtec] Allergy Unknown unknown Verified 06/13/24 16:22 choline fenofibrate Allergy Unknown unknown Verified 06/13/24 16:22 [From Trilipix] clonidine Allergy Unknown unknown Verified 06/13/24 16:22 ezetimibe [From Zetia] Allergy Unknown unknown Verified 06/13/24 16:22 moexipril Allergy Unknown Unknown Verified 06/13/24 16:22 PFSH Acute 2 PFSH: Medical History LBBB (left bundle branch block) Benign essential HTN Aortic valve stenosis, acquired RBBB (right bundle branch block) Social History Smoking and tobacco/nicotine status: never used tobacco/nicotine Vitals/I&O/Wt Last Vital Signs Temp 98.7 F 06/13/24 16:16 Pulse 57 L 06/13/24 17:36 Resp 18 06/13/24 16:16 BP 175/75 06/13/24 17:36 Pulse Ox 97 06/13/24 17:36 O2 Del Method Room Air 06/13/24 17:36 Weight last 48 hrs Weight 75.296 kg Physical Exam 2 Narrative: General: Alert oriented x3, patient seen sitting up in bed appearing comfortable on room air. HEENT: Normocephalic, atraumatic, EOMI, breathing normally. Cardio: Regular rate rhythm, normal S1-S2, no gross murmurs identified. Respiratory: Good bilateral air entry, no wheezes no rhonchi appreciated GI: Abdomen soft, nontender, nondistended, bowel sounds + Extremities: No edema bilateral extremities. Data 06/13/24 17:24 06/13/24 17:24 A&P Assessment and plan (1) Benign essential HTN: (2) Dyslipidemia: (3) Severe anemia: (4) Dyspnea: Plan #Symptomatic anemia #Shortness of breath most likely secondary to above #Left versus right bundle branch block # Hypertension #History of hemorrhoids ? Check iron studies ferritin TIBC iron percent saturation, ferritin, Nydia test, haptoglobin, reticulocyte count ? Occult blood test ? Urinalysis to rule out microscopic hematuria ? Will order 1 unit packed RBCs, type and cross. ? Recheck CBC in AM. ? MCV is low at 72. Will check peripheral smear. ? Will have suspicion of iron deficiency anemia. ? Patient will need outpatient general surgery referral for evaluation of hemorrhoids ? Will put her back: Apparently we have no record of this listed from before and there is a very personal branch block listed on the chart. Patient denies any chest pain at this time. Discussed with cardiology. Will proceed with an echocardiogram at this time. ? Patient would like to be resuscitated in the event of a code. She also states she lives alone and normally can ambulate without a walker or cane. She would like us to speak with Jude Heredia (step son) incase of medical emergencies. Full Code DVT PPX: SCDS Attestations 2 Medical Necessity Statement*: Observation admit, workup of anemia Diagnoses Benign essential HTN I10 Dyslipidemia E78.5 Severe anemia D64.9 Dyspnea R06.00
--- NOTE | 2024-06-13 18:12 | USCV_ITS ---
aSvanna Marsh Age: 79 Gender: F : 1945 Exam Date: 06/13/2024 19:14 Ordering Phys: Desiree Gilbert MD Technologist: PATI Exam Location: [facility] [place] Indication: LBBB, GARDNER BP: 175 / 75 HR: 53 Rhythm: Sinus bradycardia Technical Quality: Adequate MEASUREMENTS (Male / Female) Normal Values 2D ECHO LV Diastolic Diameter PLAX 4.3 cm 4.2 - 5.9 / 3.9 - 5.3 cm IVS Diastolic Thickness 1.5 cm 0.6 - 1.0 / 0.6 - 0.9 cm IVS Systolic Thickness 1.5 cm LVPW Diastolic Thickness 1.1 cm 0.6 - 1.0 / 0.6 - 0.9 cm LVPW Systolic Thickness 2.1 cm LVOT Diameter 1.8 cm LV Ejection Fraction 2D Teich 66.2 % LV Ejection Fraction MOD 4C 61.4 % LV Ejection Fraction MOD 2C 69.9 % LV Ejection Fraction 2C AL 70.6 % LA Diameter 5.3 cm Aorta at Sinotubular Diameter 2.8 cm IVC Diameter 2.0 cm M-MODE LA Ao Ratio MM 1.6 AV Cusp Separation MM 1.4 cm DOPPLER AV Peak Velocity 298.3 cm/s LVOT Peak Velocity 126.0 cm/s AV Area Cont Eq vti 1.1 cm squared AV Area Cont Eq pk 1.1 cm squared MV Peak Velocity 140.0 cm/s MV Area PHT 2.4 cm squared Mitral E to A Ratio 1.4 TV Peak Velocity 311.3 cm/s TR Peak Velocity 336.0 cm/s TR Peak Gradient 45.2 mmHg TV Peak E Velocity 52.0 cm/s Right Atrial Pressure 10.0 mmHg Pulmonary Artery Systolic Pressu 55.2 mmHg PV Peak Velocity 108.0 cm/s FINDINGS Left Ventricle Normal left ventricular size, systolic function and wall thickness, with no regional wall motion abnormalities. Left ventricular ejection fraction is estimated at 60 %. Grade II/IV diastolic dysfunction, moderately elevated filling pressures. Right Ventricle Normal right ventricular size. Moderate pulmonary hypertension, RVSP 55.2 mmHg. Right Atrium The right atrium is normal in size. Left Atrium The left atrium is normal in size. Mitral Valve Moderate mitral annular calcification. Mildly thickened mitral valve. Moderate mitral valve regurgitation. Aortic Valve Moderate aortic valve calcification. No aortic valve stenosis. [id number] aortic valve regurgitation. aortic valve regurgitation. Tricuspid Valve Trace tricuspid valve regurgitation. Pulmonic Valve Mild pulmonary valve regurgitation. Pericardium Normal pericardium without effusion. Aorta Normal ascending aorta dimension. IVC The inferior vena cava appears normal. CONCLUSIONS Normal left ventricular size, systolic function and wall thickness, with no regional wall motion abnormalities. Left ventricular ejection fraction is estimated at 60 %. Grade II/IV diastolic dysfunction, moderately elevated filling pressures. Normal right ventricular size. Moderate pulmonary hypertension, RVSP 55.2 mmHg. Moderate mitral annular calcification. Mildly thickened mitral valve. Moderate mitral valve regurgitation. Moderate aortic valve calcification. No aortic valve stenosis. [id number] aortic valve regurgitation. aortic valve regurgitation. Mild pulmonary valve regurgitation. There is no pericardial effusion. Right atrial pressure is around 5 mm of mercury. Renaldo Wu MD (Electronically Signed) Final Date: 13 June 2024 20:45 S
[2024-06-13 18:39] LABS: Blood Urea Nitrogen 28 mg/dL (8-23); Calcium 8.8 mg/dL (8.5-10.5); Creatinine Clr Calc Pharmacy 31.0242; NT Pro B Type Natriuretic Pept 870 pg/mL (0-450); Osmolality Calculated 300 mOsm/kg (285-295); Total Bilirubin 0.2 mg/dL (0.15-1.2)
[2024-06-13 18:58] LABS: Reticulocyte % 1.8 % (0.5-2.0)
[2024-06-13] MEDS: pantoprazole 40 mg SDV IVP (19:01)
[2024-06-13] MEDS: sodium chloride 0.9% 1,000 ML 75 ML IV (19:02)
[2024-06-13 19:15] LABS: Homocysteine 13.15 umol/l (0-15)
[2024-06-13 19:34] LABS: Ferritin 12 ng/mL (15-150); Iron 17 ug/dL (37-145); Lactate Dehydrogenase 205 U/L (135-214); Percent Saturation 3.9 % (20-50); Thyroid Stimulating Hormone 1.71 uIU/mL (0.27-4.20); Total Iron Binding Capacity 429 mcg/dl; Unsaturated Iron Binding 412 ug/dL (112-347); Vitamin B12 1077 pg/mL (232-1245)
[2024-06-13 22:59] LABS: LAB Peripheral Smear Sent for Review
--- NOTE | 2024-06-13 23:07 | PC.NURSE ---
PATIENT BELONGINGS patient had purse with 2x $20, 1x $5, 3x $1 in her wallet. this consumer loan underwriter offered to place purse in pyxis. pt agreed to have purse in locked pyxis for the night and requested to have it back in the morning.
--- NOTE | 2024-06-13 23:35 | ECG_ITS ---
[facility]: [facility]13 Pat Name: Savanna Marsh Department: Room: 272 Gender: Female Floor Representative: : 1945 Requested By: Desiree Gilbert Order Number: [id number] Louise MD: Sherry Orr M.D. Measurements Intervals [place] Rate: 52 P: 8 MI: 157 QRS: 38 QRSD: 158 T: 101 QT: 522 QTc: 489 Interpretive Statements SINUS BRADYCARDIA LEFT BUNDLE BRANCH BLOCK [120+ ms QRS DURATION, 80+ ms Q/S IN V1/V2, 85+ ms R IN I/aVL/V5/V6] Compared to ECG 05/08/2020 20:14:43 Left bundle-branch block now present Sinus rhythm no longer present Myocardial infarct finding no longer present Electronically Signed On 06-17-2024 00:11:40 CDT by Sherry Orr M.D. [email or web address]
[2024-06-14] VITALS (21 sets, daily range): BP systolic 121–204; BP diastolic 57–84; PULSE 52–60; RESP 16–20; TEMP 36.7–37.2; O2SAT 92–97
[2024-06-14 00:37] LABS: Hematocrit 25.3 % (36-47)
[2024-06-14] MEDS: acetaminophen 325 mg Tablet 650 MG PO (03:19)
[2024-06-14 06:50] LABS: Basophils # 0.1 10^3/uL (0.0-0.1); Basophils % 0.9 %; Eosinophils # 0.4 10^3/uL (0.0-0.8); Eosinophils % 6.7 %; Hematocrit 25.4 % (36-47); Lymphocytes # 1.3 10^3/uL (0.8-4.8); Lymphocytes % 22.4 %; Mean Corpuscular HGB Conc 27.6 g/dL (30-55); Mean Corpuscular Hemoglobin 20.6 pg (27-33); Mean Corpuscular Volume 74.7 fl (85-98); Mean Platelet Volume 10.5 fL (7.4-10.4); Monocytes # 0.7 10^3/uL (0.2-0.9); Monocytes % 11.5 %; Neutrophils # 3.31 10^3/uL (1.8-7.7); Neutrophils % 58.3 %; Nucleated Red Blood Cells % 0 %; Platelet Count 259 10^3/cmm (157-399); Red Cell Distribution Width 21.3 % (12.1-15.1); White Blood Count 5.67 10^3/uL (3.29-11.43)
--- NOTE | 2024-06-14 12:01 | PC.CHAP ---
Pastoral Care Encounter/Spiritual Assessment Type of Contact [] Declined product assembler visit [] Patient/Family/Request visit [] Outpatient visit [] Follow-up visit [] Physician referral [] Code/Alert [] Routine visit [] Staff referral [] Actively dying [X] Patient sleeping x2 [] Family support [] [] Out of room [] Palliative care [] [] Receiving care in room [] Pre-surgical visit [] Trauma [] Long length of stay [] ICU visit [] Other: Relational/Emotional Strength [] Patient feels connected with others/family/visitors/staff [] Distress [] Loneliness/isolation [] Abandonment Spirituality of Patient [] Person of Flori [] Attends Mandaeism of their [place]i [] Believes in Prayer [] Reads Bible or Yazidi materials [] There are Spiritual issues to be addressed Correctional Counselor/Case Manager Interventions [] Prayer [] Active listening [] Non-anxious presence [] Spiritual/emotional support [] Crisis/trauma care [] Spiritual counseling [] Bereavement support [] Provided bereavement packet [] Provided Bible/devotional materials [] Provided toy/stuffed animal, coloring book to patient or family member [] Provided Communion [] Anointing/[place] [] Salvation [] Completed spiritual assessment [] Other: Impact on Illness or Injury [] Angry [] Fearful [] Anxious [] Often cries [] Exhaustion [] Unable to work [] Unable to attend zoroastrianism [] Unable to walk/stand [] Unable to read [] Unable to drive [] Unable to eat/drink [] Unable to sleep [] Unable to be with family [] Patient intubated [] Other: Summary Time spent with patient
--- NOTE | 2024-06-14 13:31 | P.PN_ITS ---
Subjective 2 Subjective: Seen today. Hemoglobin 7.0 this morning. Patient is status post 1 unit packed RBC. Vitals/I&O/Wt Last Vital Signs Temp 98.4 F 06/14/24 12:54 Pulse 55 L 06/14/24 12:54 Resp 18 06/14/24 12:54 BP 129/62 06/14/24 12:54 Pulse Ox 95 06/14/24 12:54 O2 Del Method Room Air 06/14/24 11:34 06/13/24 06/14/24 06/14/24 22:59 06:59 14:59 Intake Total 622.5 / 622.5 1060 / 1060 Balance 622.5 / 622.5 1060 / 1060 Weight last 48 hrs Weight 78.97 kg Weight 77.7 kg Weight 75.296 kg Physical Exam 2 Narrative: General: Alert oriented x3, patient seen sitting up in bed appearing comfortable on room air. HEENT: Normocephalic, atraumatic, EOMI, breathing normally. Cardio: Regular rate rhythm, normal S1-S2, no gross murmurs identified. Respiratory: Good bilateral air entry, no wheezes no rhonchi appreciated GI: Abdomen soft, nontender, nondistended, bowel sounds + Extremities: No edema bilateral extremities. Data 06/14/24 06:17 06/13/24 17:24 A&P Assessment and plan (1) Benign essential HTN: (2) Dyslipidemia: (3) Severe anemia: (4) Dyspnea: Plan #Symptomatic anemia #Shortness of breath most likely secondary to above #Left versus right bundle branch block # Hypertension #History of hemorrhoids ? Check iron studies ferritin TIBC iron percent saturation, ferritin, Nydia test, haptoglobin, reticulocyte count ? Occult blood test ? Urinalysis to rule out microscopic hematuria ? Will order 1 unit packed RBCs, type and cross. ? Recheck CBC in AM. ? MCV is low at 72. Will check peripheral smear. ? Will have suspicion of iron deficiency anemia. ? Patient will need outpatient general surgery referral for evaluation of hemorrhoids ? Left bundle branch block: Apparently we have no record of this listed from before and there is right bundlel branch block listed on the chart. Patient denies any chest pain at this time. Discussed with cardiology. Will proceed with an echocardiogram at this time. ? Patient would like to be resuscitated in the event of a code. She also states she lives alone and normally can ambulate without a walker or cane. She would like us to speak with Jude Heredia (step son) incase of medical emergencies. Full Code DVT PPX: SCDS 06/14/2024 ?Order 1 more unit packed RBC today. Check CBC every 12 hours ? Requested fecal occult blood test. Discussed with nursing staff to obtain stool sample ? Reticulocyte count 1.8, Nydia test negative, haptoglobin 200, ferritin 15, iron percent saturation 3.9. ? Labs consistent with severe iron deficiency anemia. ? If occult blood test is positive and patient does not respond to blood transfusions she will require a full GI workup with EGD and colonoscopy. ? Low suspicion of myelodysplastic syndrome as it would have responded to transfusion. ?Will check peripheral smear. Attestations 2 Medical Necessity Statement*: Continue to manage patient for symptomatic anemia. Patient will be requiring another blood transfusion today. Diagnoses Benign essential HTN I10 Dyslipidemia E78.5 Severe anemia D64.9 Dyspnea R06.00
[2024-06-14 13:58] LABS: Bilirubin Urine Negative (Negative); Blood Urine Negative (Negative); Glucose Urine UA Negative (Normal); Ketones Urine Negative (Negative); Leukocyte Esterase Urine 2+ (Negative); Nitrate Urine Positive (Negative); Protein Urine Trace (Negative); Specific Gravity, Urine 1.016 (1.005-1.030); Urine Appearance Clear (CLEAR); Urine Color Yellow (Yellow)
[2024-06-14 14:00] LABS: Add Urine Microscopic? YES; Bacteria Urine 3+ /hpf; Hyaline Casts Urine 8.67 /lpf; RBC Urine 0-2 /hpf (0-2); Squamous Epithelial Cell Urine 0-5 /hpf (0-5); WBC Urine 21-50 /hpf (0-5)
[2024-06-14] MEDS: lactulose oral liq 20 gm/30 mL UDC PO (14:14)
[2024-06-14] MEDS: sodium chloride 0.9% 1,000 ML 75 ML IV (14:19)
[2024-06-14 14:25] LABS: UA Slide Review UA Slide Review Perf
[2024-06-14 14:27] LABS: Add Urine Culture? Yes
[2024-06-14] MEDS: cefTRIAXone 1,000 mg SDV 1000 MG IVP (14:51)
[2024-06-14 15:52] LABS: Hematocrit 30.4 % (36-47)
[2024-06-14] MEDS: pantoprazole 40 mg SDV IVP (17:26)
[2024-06-14] MEDS: losartan 50 mg Tablet PO (18:16)
[2024-06-14] MEDS: hyDRALAzine 20 mg/mL INJ 1 mL 10 MG IVP (18:16)
[2024-06-15] VITALS (11 sets, daily range): BP systolic 99–191; BP diastolic 63–79; PULSE 52–94; RESP 16–17; TEMP 36.8–37.2; O2SAT 91–94
[2024-06-15] MEDS: sodium chloride 0.9% 1,000 ML 75 ML IV (03:19)
[2024-06-15 04:15] LABS: Anion Gap 13.2 (5-19); Blood Urea Nitrogen 23 mg/dL (8-23); Calcium 8.4 mg/dL (8.5-10.5); Carbon Dioxide 22 mmol/L (22-29); Chloride 113 mmol/L (98-107); Glucose 100 mg/dL (65-115); Magnesium 2.7 mg/dL (1.7-2.3); Osmolality Calculated 300 mOsm/kg (285-295); Potassium 5.2 mmol/L (3.5-5.1); Sodium 143 mmol/L (136-145)
[2024-06-15 04:18] LABS: Creatinine Clr Calc Pharmacy 36.5979
[2024-06-15 05:37] LABS: Basophils # 0.1 10^3/uL (0.0-0.1); Basophils % 0.8 %; Eosinophils # 0.4 10^3/uL (0.0-0.8); Eosinophils % 5.6 %; Hematocrit 28.7 % (36-47); Lymphocytes # 1.9 10^3/uL (0.8-4.8); Lymphocytes % 24.7 %; Mean Corpuscular HGB Conc 27.9 g/dL (30-55); Mean Corpuscular Hemoglobin 20.9 pg (27-33); Mean Corpuscular Volume 75.1 fl (85-98); Mean Platelet Volume 10.3 fL (7.4-10.4); Monocytes # 0.7 10^3/uL (0.2-0.9); Monocytes % 9.4 %; Neutrophils # 4.56 10^3/uL (1.8-7.7); Neutrophils % 59.1 %; Nucleated Red Blood Cells % 0 %; Platelet Count 242 10^3/cmm (157-399); Red Blood Count 3.82 10^6/uL (3.85-5.65); Red Cell Distribution Width 20.4 % (12.1-15.1)
[2024-06-15] MEDS: losartan 50 mg Tablet PO (08:44)
--- NOTE | 2024-06-15 12:27 | P.PN_ITS ---
Subjective 2 Subjective: Seen this morning. No acute events overnight. Hemoglobin dropped down to 8.0 again this morning. Urine culture positive for gram-negative rods. Patient is status post 2 units packed RBC Fecal occult blood test negative. Vitals/I&O/Wt Last Vital Signs Temp 98.3 F 06/15/24 11:29 Pulse 60 06/15/24 11:29 Resp 17 06/15/24 11:29 BP 159/64 06/15/24 11:29 Pulse Ox 93 06/15/24 11:29 O2 Del Method Room Air 06/15/24 11:29 06/14/24 06/15/24 06/15/24 22:59 06:59 14:59 Intake Total 975 / 2385 240 / 240 Output Total 272 / 272 600 / 600 Balance 703 / 2113 -360 / -360 Weight last 48 hrs Weight 83.007 kg Weight 78.97 kg Weight 77.7 kg Weight 75.296 kg Physical Exam 2 Narrative: General: Alert oriented x3, patient seen sitting up in bed appearing comfortable on room air. HEENT: Normocephalic, atraumatic, EOMI, breathing normally. Cardio: Regular rate rhythm, normal S1-S2, no gross murmurs identified. Respiratory: Good bilateral air entry, no wheezes no rhonchi appreciated GI: Abdomen soft, nontender, nondistended, bowel sounds + Extremities: No edema bilateral extremities. Data 06/15/24 05:29 06/15/24 02:43 Micro: Microbiology 06/14/24 13:34 Urine Culture - Preliminary Urine,Clean Catch Gram Negative Rods 06/14/24 17:50 Occult Blood (FIT) - Final Stool Routine Collection A&P Assessment and plan (1) Benign essential HTN: (2) Dyslipidemia: (3) Severe anemia: (4) Dyspnea: Plan #Symptomatic anemia #Shortness of breath most likely secondary to above #Left versus right bundle branch block # Hypertension #History of hemorrhoids ? Check iron studies ferritin TIBC iron percent saturation, ferritin, Nydia test, haptoglobin, reticulocyte count ? Occult blood test ? Urinalysis to rule out microscopic hematuria ? Will order 1 unit packed RBCs, type and cross. ? Recheck CBC in AM. ? MCV is low at 72. Will check peripheral smear. ? Will have suspicion of iron deficiency anemia. ? Patient will need outpatient general surgery referral for evaluation of hemorrhoids ? Left bundle branch block: Apparently we have no record of this listed from before and there is right bundlel branch block listed on the chart. Patient denies any chest pain at this time. Discussed with cardiology. Will proceed with an echocardiogram at this time. ? Patient would like to be resuscitated in the event of a code. She also states she lives alone and normally can ambulate without a walker or cane. She would like us to speak with Jude Terrymikey (step son) incase of medical emergencies. Full Code DVT PPX: SCDS 06/15/2024 ? Patient is status post 2 units packed RBC ? Occult blood test negative ? Labs do reveal severe iron deficiency anemia ? Peripheral smear pending ? Urine culture positive for gram-negative rods ? Continue ceftriaxone daily Attestations 2 Medical Necessity Statement*: Continue to manage patient for symptomatic anemia. Start IV iron today. Continue to treat for UTI Diagnoses Benign essential HTN I10 Dyslipidemia E78.5 Severe anemia D64.9 Dyspnea R06.00
[2024-06-15] MEDS: cefTRIAXone 1,000 mg SDV 1000 MG IVP (14:11)
[2024-06-15] MEDS: pantoprazole 40 mg SDV IVP (17:51)
[2024-06-16] VITALS (8 sets, daily range): BP systolic 124–187; BP diastolic 68–86; PULSE 58–69; RESP 14–17; TEMP 36.7–37.1; O2SAT 91–94
[2024-06-16] MEDS: hyDRALAzine 20 mg/mL INJ 1 mL 10 MG IVP (00:28)
[2024-06-16 06:01] LABS: Basophils # 0.1 10^3/uL (0.0-0.1); Basophils % 0.8 %; Eosinophils # 0.4 10^3/uL (0.0-0.8); Eosinophils % 5.4 %; Hematocrit 30.8 % (36-47); Lymphocytes # 1.8 10^3/uL (0.8-4.8); Lymphocytes % 22.7 %; Mean Corpuscular HGB Conc 27.9 g/dL (30-55); Mean Corpuscular Hemoglobin 20.8 pg (27-33); Mean Corpuscular Volume 74.6 fl (85-98); Mean Platelet Volume 10.3 fL (7.4-10.4); Monocytes # 0.8 10^3/uL (0.2-0.9); Monocytes % 10.5 %; Neutrophils # 4.68 10^3/uL (1.8-7.7); Neutrophils % 60.3 %; Nucleated Red Blood Cells % 0 %; Platelet Count 259 10^3/cmm (157-399); Red Blood Count 4.13 10^6/uL (3.85-5.65); Red Cell Distribution Width 21.4 % (12.1-15.1); White Blood Count 7.75 10^3/uL (3.29-11.43)
[2024-06-16] MEDS: losartan 50 mg Tablet 100 MG PO (08:46)
--- NOTE | 2024-06-16 11:23 | USR_ITS ---
PROCEDURE INFORMATION: Exam: US Duplex Bilateral Extracranial Arteries; Complete; Carotid Arteries Exam date and time: 06/16/2024 1:04 PM Age: 79 years old Clinical indication: Other: Whoosh sound in ear, TECHNIQUE: Imaging protocol: Real-time duplex ultrasound scan of the bilateral extracranial arteries combining styles scale, color Doppler and spectral waveform analysis with image documentation. Complete exam. Exam focused on the carotid arteries. COMPARISON: No relevant prior studies available. FINDINGS: Right common carotid artery: Unremarkable. No occlusion or stenosis. Waveforms are normal. Right internal carotid artery: Unremarkable. No occlusion or stenosis. Waveforms are normal. Right ICA/CCA ratio: Within normal limits. 1.1 Right external carotid artery: No stenosis in the origin. Right vertebral artery: Unremarkable. Antegrade flow. Left common carotid artery: Unremarkable. No occlusion or stenosis. Waveforms are normal. Left internal carotid artery: Unremarkable. No occlusion or stenosis. Waveforms are normal. Left ICA/CCA ratio: Within normal limits. 1.4 Left external carotid artery: No stenosis in the origin. Left vertebral artery: Unremarkable. Antegrade flow. US/CV carotid duplex BI* [id number] IMPRESSION: No carotid arterial stenosis. REFERENCES: SRU CRITERIA. The degree of internal carotid artery stenosis is based on criteria defined by the Society of Radiologists in Ultrasound (SRU). Normal is no stenosis. Mild is less than 50% stenosis. Moderate is 50-69% stenosis. Severe is greater than 69% stenosis to near occlusion. Near occlusion is a markedly narrowed lumen. Total occlusion is no detectable patent lumen.
--- NOTE | 2024-06-16 15:18 | PM.DCS ---
Discharge Providers Date of Admission: 06/13/24 18:45 Date of Discharge: June 16, 2024 Attending Provider at Admission: Desiree Gilbert MD Attending Provider at Discharge: Desiree Gilbert MD Primary Care Provider: RICHARD Olmedo Diagnoses at Discharge Discharge Diagnosis (1) Benign essential HTN: Status: Acute (2) Dyslipidemia: Status: Acute (3) Severe anemia: Status: Acute (4) Dyspnea: Status: Resolved Reason for Visit Reason for Visit: Dr Orr sent down low hemoglobin Hospital Course Hospital Course Patient presented with a hemoglobin of 6.9 and was diagnosed with symptomatic anemia. Workup was completed which showed most likely severe iron deficiency anemia. Patient has received 2 units of packed RBCs during hospitalization and was given 1 dose of Venofer. She was discharged home on oral iron and asked to follow-up with hematology as an outpatient. FOBT was negative. GI workup was not pursued therefore. Echo did not show any wall motion abnormalities. She does have a left bundle branch block and a right bundle branch block. She is referred to cardiology as previously scheduled. Patient demonstrated understanding and was discharged home in stable condition. Physical Exam Narrative: General: Alert oriented x3, patient seen sitting up in bed appearing comfortable on room air. HEENT: Normocephalic, atraumatic, EOMI, breathing normally. Cardio: Regular rate rhythm, normal S1-S2, no gross murmurs identified. Respiratory: Good bilateral air entry, no wheezes no rhonchi appreciated GI: Abdomen soft, nontender, nondistended, bowel sounds + Extremities: No edema bilateral extremities. Discharge Data Studies Completed and Pending Completed Studies During Hospitalization Category Date Time Status XR chest 1V portable [id number] Stat Exams 06/13/24 16:38 Completed CV carotid duplex BI* [id number] Routine Ultrasound 06/16/24 11:23 Completed CV. echo complete* [id number] Stat Ultrasound 06/13/24 18:12 Completed Pending at discharge Category Date Time Status Complete Blood Count w/Auto Q12H Lab 06/16/24 Ordered Complete Blood Count w/Auto Q12H Lab 06/17/24 04:00 Ordered Complete Blood Count w/Auto Q12H Lab 06/17/24 16:00 Ordered Complete Blood Count w/Auto Q12H Lab 06/18/24 04:00 Ordered Complete Blood Count w/Auto Q12H Lab 06/18/24 16:00 Ordered Occult Blood Stool [Immunochemical Fecal OCB] Routine Lab 06/13/24 16:38 Uncollected Radiology Impressions Chest X-Ray 06/13/24 16:38 IMPRESSION: 1. Large hiatal hernia. 2. 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 Carotid Doppler Study 06/16/24 11:23 IMPRESSION: No carotid arterial stenosis. REFERENCES: SRU CRITERIA. The degree of internal carotid artery stenosis is based on criteria defined by the Society of Radiologists in Ultrasound (SRU). Normal is no stenosis. Mild is less than 50% stenosis. Moderate is 50-69% stenosis. Severe is greater than 69% stenosis to near occlusion. Near occlusion is a markedly narrowed lumen. Total occlusion is no detectable patent lumen. Laboratory Results WBC 7.75 10^3/uL (3.29-11.43) 06/16/24 05:27 Corrected WBC Cancelled 06/15/24 02:43 RBC 4.13 10^6/uL (3.85-5.65) 06/16/24 05:27 Hgb 8.60 g/dL (11.27-16.99) L 06/16/24 05:27 Hct 30.8 % (36-47) L 06/16/24 05:27 MCV 74.6 fl (85-98) L 06/16/24 05:27 MCH 20.8 pg (27-33) L 06/16/24 05:27 MCHC 27.9 g/dL (30-55) L 06/16/24 05:27 RDW 21.4 % (12.1-15.1) H 06/16/24 05:27 Plt Count 259 10^3/cmm (157-399) 06/16/24 05:27 MPV 10.3 fL (7.4-10.4) 06/16/24 05:27 Gran % Cancelled 06/15/24 02:43 Neut % (Auto) 60.3 % 06/16/24 05:27 Lymph % (Auto) 22.7 % 06/16/24 05:27 Hale % (Auto) 10.5 % 06/16/24 05:27 Eos % (Auto) 5.4 % 06/16/24 05:27 Baso % (Auto) 0.8 % 06/16/24 05:27 Reticulocyte % (Auto) 1.8 % (0.5-2.0) 06/13/24 17:24 Neut # (Auto) 4.68 10^3/uL (1.8-7.7) 06/16/24 05:27 Lymph # (Auto) 1.8 10^3/uL (0.8-4.8) 06/16/24 05:27 Hale # (Auto) 0.8 10^3/uL (0.2-0.9) 06/16/24 05:27 Eos # (Auto) 0.4 10^3/uL (0.0-0.8) 06/16/24 05:27 Baso # (Auto) 0.1 10^3/uL (0.0-0.1) 06/16/24 05:27 Absolute Gran (auto) Cancelled 06/15/24 02:43 Nucleated RBC % (auto) 0 % 06/16/24 05:27 Nucleated RBCs # 0.0 /100WBC 06/16/24 05:27 Peripher Smr Path Cons Sent for review 06/13/24 17:24 Haptoglobin 201.0 mg/L (30-200) H 06/13/24 17:24 PT Cancelled 06/13/24 18:07 INR Cancelled 06/13/24 18:07 APTT 39.1 SECONDS (23.9-36.7) H 06/13/24 17:24 Sodium 143 mmol/L (136-145) 06/15/24 02:43 Potassium 5.2 mmol/L (3.5-5.1) H 06/15/24 02:43 Chloride 113 mmol/L (98-107) H 06/15/24 02:43 Carbon Dioxide 22 mmol/L (22-29) 06/15/24 02:43 Anion Gap 13.2 (5-19) 06/15/24 02:43 BUN 23 mg/dL (8-23) 06/15/24 02:43 Creatinine 1.3 mg/dL (0.5-0.9) H 06/15/24 02:43 GFR Calculation Not Reportable 06/15/24 02:43 Glucose 100 mg/dL (65-115) 06/15/24 02:43 Calculated Osmolality 300 mOsm/kg (285-295) H 06/15/24 02:43 Calcium 8.4 mg/dL (8.5-10.5) L 06/15/24 02:43 Magnesium 2.7 mg/dL (1.7-2.3) H 06/15/24 02:43 Iron 17 ug/dL (37-145) L 06/13/24 17:24 TIBC 429 mcg/dl 06/13/24 17:24 % Saturation 3.9 % (20-50) L 06/13/24 17:24 Unsat Iron Binding 412 ug/dL (112-347) H 06/13/24 17:24 Ferritin 12 ng/mL (15-150) L 06/13/24 17:24 Total Bilirubin 0.2 mg/dL (0.15-1.2) 06/13/24 17:24 AST 18 U/L (0-32) 06/13/24 17:24 ALT 11 U/L (0-33) 06/13/24 17:24 Alkaline Phosphatase 91 U/L (35-105) 06/13/24 17:24 Lactate Dehydrogenase 205 U/L (135-214) 06/13/24 17:24 NT-Pro-B Natriuret Pep 870 pg/mL (0-450) H 06/13/24 17:24 Total Protein 7.4 g/dL (6.6-8.7) 06/13/24 17:24 Albumin 4.1 g/dL (3.5-5.2) 06/13/24 17:24 Globulin 3.3 g/dL (1.3-4.6) 06/13/24 17:24 Vitamin B12 1077 pg/mL (232-1245) 06/13/24 17:24 Homocysteine 13.15 umol/l (0-15) 06/13/24 17:24 TSH 1.71 uIU/mL (0.27-4.20) 06/13/24 17:24 Urine Color Yellow (Yellow) 06/14/24 13:34 Urine Appearance Clear (CLEAR) 06/14/24 13:34 Urine pH 5.0 (5-7) 06/14/24 13:34 Ur Specific [place] 1.016 (1.005-1.030) 06/14/24 13:34 Urine Protein Trace (Negative) A 06/14/24 13:34 Urine Glucose (UA) Negative (Normal) 06/14/24 13:34 Urine Ketones Negative (Negative) 06/14/24 13:34 Urine Blood Negative (Negative) 06/14/24 13:34 Urine Nitrate Positive (Negative) A 06/14/24 13:34 Urine Bilirubin Negative (Negative) 06/14/24 13:34 Urine Urobilinogen 1.0 mg/dL (Negative) 06/14/24 13:34 Ur Leukocyte Esterase 2+ (Negative) A 06/14/24 13:34 Urine RBC 0-2 /hpf (0-2) 06/14/24 13:34 Urine WBC 21-50 /hpf (0-5) H 06/14/24 13:34 Ur Squamous Epith Cells 0-5 /hpf (0-5) 06/14/24 13:34 Amorphous Sediment Not Reportable 06/14/24 13:34 Urine Bacteria 3+ /hpf (NONE) H 06/14/24 13:34 Hyaline Casts 8.67 /lpf 06/14/24 13:34 Blood Type B Positive 06/13/24 17:24 Rho(D) Type Rh positive 06/13/24 17:24 Antibody Screen Negative 06/13/24 17:24 CARLY, Poly Interpret Negative 06/13/24 17:24 Crossmatch See Detail 06/13/24 17:24 Vitals Last Vital Signs Temp 98.3 F 06/16/24 12:00 Pulse 58 L 06/16/24 14:00 Resp 14 06/16/24 12:00 BP 124/68 06/16/24 12:00 Pulse Ox 93 06/16/24 12:00 O2 Del Method Room Air 06/16/24 12:00 Discharge Plan Discharge Patient Disposition: Home Condition: Stable Prescriptions: New ferrous sulfate 324 mg (65 mg iron) tablet,delayed release (DR/EC) 324 mg PO DAILY Qty: 30 2RF Continued docusate calcium [Stool Softener (docusate gareth)] 240 mg Capsule 240 mg PO DAILY aspirin [Priscila Low Dose Aspirin] 81 mg Tablet,Delayed Release (Dr/Ec) 81 mg PO DAILY multivit with min-folic acid [Multivitamin Gummies] 200 mcg Tablet,Chewable 2 tab PO DAILY Changed losartan 50 mg tablet 100 mg PO DAILY Qty: 30 5RF Held ibuprofen 200 mg Tablet 200 - 400 mg PO Q4H PRN (Reason: FEVER/PAIN) Hold Instructions: see pcp Discontinued atenolol 100 mg tablet 50 mg PO BEDTIME Discharge Orders: Discharge Order (Routine); Ordered 06/16/24 Ordered By: Desiree Gilbert Referrals: Juju Blanco FNP [Primary Care Provider] - 4-7 days (Please call to make your appointment on monday to recheck your labs. ) Vince Reeves MD [Hospitalist] - 1 week (We have notified your physician's clinic of the need for a follow-up appointment to be scheduled. If you have not heard from them within the next 2 business days, please call them directly. ) Discharge Diet: Cardiac Discharge Activity: Resume usual activity Patient Instructions: Iron Supplements (By mouth), Cefdinir (By mouth), Iron Rich Diet (DC), Anemia (DC), Opioid Safety Discharge Attestations Time Spent in Discharge Care*: less than 30 min Quality Metrics Clinical Quality Measures [ No reported AMI, CVA or VTE this stay] Coding Level of Care Code Acute Code for Chg Fwd Diagnoses Benign essential HTN I10 Dyslipidemia E78.5 Severe anemia D64.9 Dyspnea R06.00
[2024-06-16] MEDS: cefTRIAXone 1,000 mg SDV 1000 MG IVP (15:42)
[2024-06-16] MEDS: iron sucrose 200 MG in sodium chloride 0.9% (100 ml) 100 ML 220 MG IV (15:42)
[2024-06-16 16:16] LABS: Basophils # 0.1 10^3/uL (0.0-0.1); Basophils % 0.8 %; Eosinophils # 0.3 10^3/uL (0.0-0.8); Eosinophils % 4.6 %; Hematocrit 31.5 % (36-47); Lymphocytes # 1.9 10^3/uL (0.8-4.8); Lymphocytes % 25.3 %; Mean Corpuscular HGB Conc 27.3 g/dL (30-55); Mean Corpuscular Hemoglobin 20.8 pg (27-33); Mean Corpuscular Volume 76.3 fl (85-98); Monocytes # 0.9 10^3/uL (0.2-0.9); Neutrophils # 4.17 10^3/uL (1.8-7.7); Nucleated Red Blood Cells % 0 %; Platelet Count 257 10^3/cmm (157-399); Red Blood Count 4.13 10^6/uL (3.85-5.65); White Blood Count 7.32 10^3/uL (3.29-11.43)
--- NOTE | 2024-06-16 16:27 | PC.NURSE ---
Discharge Note Patient discharged to home via private vehicle accompanied by friend. Discharge instructions reviewed with patient and/or territory representative. Mobile pharmacy medications and/or prescriptions provided. Belongings/home medications returned.
== END 2024-06-16 17:21 | disposition home or self-care (01) ==
LOC: ER 18:14 → MEDSURG 18:45
PROVIDERS: Admitting Provider Internal Medicine; Emergency Provider Family Medicine; PCP Nurse Practitioner Family; Visit Provider Internal Medicine
DX: D50.8 Other iron deficiency anemias (principal); I10 Essential (primary) hypertension; E78.5 Hyperlipidemia, unspecified; R06.00 Dyspnea, unspecified; I44.7 Left bundle-branch block, unspecified; K59.09 Other constipation; K64.9 Unspecified hemorrhoids
CPT/HCPCS: 36415; 36430; 71045; 80048; 80053; 80503; 81001; 82274; 82607; 82728; 83010; 83090; 83540; 83550; 83615; 83735; 83880; 84443; 85014; 85018; 85025; 85045; 85610; 85730; 86850; 86880; 86900; 86920; 87077; 87086; 87186; 93005; 93306; 93880; 94664; 96361; 96365; 96375; 96376; 99205; 99285; G0378; J0360; J0696; J1756; J2470; J7030; P9016; P9040

== ENCOUNTER → 2024-06-20 09:09 | Outpatient (BNVA) | payer MEDICARE, SELFPAY | PROVIDERS: PCP Nurse Practitioner Family; Visit Provider Nurse Practitioner Family | DX: I10 Essential (primary) hypertension (principal); D64.9 Anemia, unspecified; D50.9 Iron deficiency anemia, unspecified | CPT/HCPCS: 80053; 83550; 85025 ==

== ENCOUNTER 2024-06-27 14:20 | Oncology outpatient (recurring) (ONCR) | payer MEDICARE, SELFPAY ==
[2024-06-27 15:54] LABS: Basophils # 0.1 10^3/uL (0.0-0.1); Basophils % 1.1 %; Eosinophils # 0.2 10^3/uL (0.0-0.8); Eosinophils % 4.2 %; Hematocrit 35.1 % (36-47); Lymphocytes # 1.8 10^3/uL (0.8-4.8); Lymphocytes % 30.8 %; Mean Corpuscular HGB Conc 28.2 g/dL (30-55); Mean Corpuscular Hemoglobin 22.2 pg (27-33); Mean Corpuscular Volume 78.9 fl (85-98); Mean Platelet Volume 10.9 fL (7.4-10.4); Monocytes # 0.5 10^3/uL (0.2-0.9); Monocytes % 8.8 %; Neutrophils # 3.12 10^3/uL (1.8-7.7); Neutrophils % 54.7 %; Nucleated Red Blood Cells % 0 %; Platelet Count 278 10^3/cmm (157-399); Red Blood Count 4.45 10^6/uL (3.85-5.65); Red Cell Distribution Width 24.5 % (12.1-15.1); White Blood Count 5.69 10^3/uL (3.29-11.43)
[2024-06-27 16:27] LABS: Alanine Aminotransferase 12 U/L (0-33); Alkaline Phosphatase 86 U/L (35-105); Anion Gap 15.3 (5-19); Aspartate Amino Transferase 15 U/L (0-32); Blood Urea Nitrogen 29 mg/dL (8-23); Calcium 9.1 mg/dL (8.5-10.5); Carbon Dioxide 26 mmol/L (22-29); Chloride 106 mmol/L (98-107); Ferritin 100 ng/mL (15-150); Globulin 2.6 g/dL (1.3-4.6); Glucose 123 mg/dL (65-115); Iron 74 ug/dL (37-145); Lactate Dehydrogenase 210 U/L (135-214); Osmolality Calculated 303 mOsm/kg (285-295); Percent Saturation 25.8 % (20-50); Potassium 4.3 mmol/L (3.5-5.1); Sodium 143 mmol/L (136-145); Total Bilirubin 0.2 mg/dL (0.15-1.2); Total Iron Binding Capacity 286 mcg/dl; Total Protein 6.6 g/dL (6.6-8.7); Unsaturated Iron Binding 212 ug/dL (112-347)
[2024-06-27 16:31] LABS: Vitamin B12 845 pg/mL (232-1245)
[2024-07-03 13:39] LABS: Soluble Transferrin Receptor 4.91 mg/L (0.76-1.76)
== END 2024-07-20 23:59 | disposition home or self-care (01) ==
PROVIDERS: PCP Nurse Practitioner Family; Visit Provider Internal Medicine Hematology & Oncology
DX: D50.9 Iron deficiency anemia, unspecified (principal); U07.1 COVID-19; Z79.899 Other long term (current) drug therapy
CPT/HCPCS: 36415; 80053; 81000; 82607; 82728; 83010; 83540; 83550; 83615; 84238; 85025; 85045; 99204

== ENCOUNTER → 2024-07-04 13:40 | Outpatient (BNVA) | payer MEDICARE, SELFPAY | PROVIDERS: PCP Nurse Practitioner Family; Referring Provider Internal Medicine Hematology & Oncology; Visit Provider Student in an Organized Health Care Education/Training Program | DX: D50.9 Iron deficiency anemia, unspecified (principal) | CPT/HCPCS: 99203 ==

== ENCOUNTER → 2024-07-25 10:00 | Outpatient (BNVA) | payer MEDICARE, SELFPAY | PROVIDERS: PCP Nurse Practitioner Family; Visit Provider Nurse Practitioner Family | DX: D64.9 Anemia, unspecified (principal); Z79.899 Other long term (current) drug therapy | CPT/HCPCS: 80053; 82607; 82728; 82746; 83010; 83540; 83550; 83615; 84238; 85025; 85045 ==

== ENCOUNTER 2024-08-07 14:08 | Oncology outpatient (recurring) (ONCR) | payer MEDICARE, SELFPAY | END 2024-08-20 23:59 | disposition home or self-care (01) | PROVIDERS: PCP Nurse Practitioner Family; Visit Provider Internal Medicine Hematology & Oncology | DX: D50.9 Iron deficiency anemia, unspecified (principal); Z79.899 Other long term (current) drug therapy | CPT/HCPCS: 99213 ==

== ENCOUNTER 2024-12-04 10:18 | Oncology outpatient (recurring) (ONCR) | payer MEDICARE, SELFPAY ==
[2024-12-04 10:43] LABS: Basophils # 0.1 10^3/uL (0.0-0.1); Basophils % 0.8 %; Eosinophils # 0.2 10^3/uL (0.0-0.8); Eosinophils % 2.7 %; Hematocrit 38.8 % (36-47); Lymphocytes # 2.5 10^3/uL (0.8-4.8); Lymphocytes % 40.2 %; Mean Corpuscular Volume 90.9 fl (85-98); Mean Platelet Volume 10.2 fL (7.4-10.4); Monocytes # 0.5 10^3/uL (0.2-0.9); Monocytes % 7.9 %; Neutrophils # 3.02 10^3/uL (1.8-7.7); Neutrophils % 48.1 %; Nucleated Red Blood Cells % 0 %; Platelet Count 193 10^3/cmm (157-399); Red Blood Count 4.27 10^6/uL (3.85-5.65); Red Cell Distribution Width 14.6 % (12.1-15.1); Reticulocyte % 1.9 % (0.5-2.0); White Blood Count 6.29 10^3/uL (3.29-11.43)
[2024-12-04 11:07] LABS: Alanine Aminotransferase 13 U/L (0-33); Albumin Level 4.1 g/dL (3.5-5.2); Alkaline Phosphatase 93 U/L (35-105); Anion Gap 16.5 (5-19); Aspartate Amino Transferase 19 U/L (0-32); Blood Urea Nitrogen 22 mg/dL (8-23); Calcium 9.5 mg/dL (8.5-10.5); Carbon Dioxide 23 mmol/L (22-29); Chloride 107 mmol/L (98-107); Ferritin 31 ng/mL (15-150); Globulin 3.3 g/dL (1.3-4.6); Glucose 87 mg/dL (65-115); Iron 60 ug/dL (37-145); Lactate Dehydrogenase 190 U/L (135-214); Osmolality Calculated 297 mOsm/kg (285-295); Potassium 4.5 mmol/L (3.5-5.1); Sodium 142 mmol/L (136-145); Total Bilirubin 0.4 mg/dL (0.15-1.2); Total Iron Binding Capacity 332 mcg/dl; Total Protein 7.4 g/dL (6.6-8.7); Unsaturated Iron Binding 272 ug/dL (112-347)
== END 2024-12-18 23:59 | disposition home or self-care (01) ==
PROVIDERS: PCP Nurse Practitioner Family; Visit Provider Internal Medicine
DX: D50.9 Iron deficiency anemia, unspecified (principal); U07.1 COVID-19; I10 Essential (primary) hypertension; K59.09 Other constipation; E78.5 Hyperlipidemia, unspecified; Z79.899 Other long term (current) drug therapy
CPT/HCPCS: 36415; 80053; 82728; 83010; 83540; 83550; 83615; 85025; 85045; 99214

== ENCOUNTER 2025-03-05 11:15 | Oncology outpatient (recurring) (ONCR) | payer MEDICARE, SELFPAY ==
[2025-03-05 11:52] LABS: Hematocrit 40.5 % (36-47); Hemoglobin 12.60 g/dL (11.27-16.99); Mean Corpuscular HGB Conc 31.1 g/dL (30-55); Mean Corpuscular Hemoglobin 27.9 pg (27-33); Mean Corpuscular Volume 89.8 fl (85-98); Nucleated Red Blood Cells % 0 %; Platelet Count 199 10^3/cmm (157-399); Red Blood Count 4.51 10^6/uL (3.85-5.65); White Blood Count 6.35 10^3/uL (3.29-11.43)
[2025-03-05 12:14] LABS: Alanine Aminotransferase 14 U/L (0-33); Albumin Level 4.1 g/dL (3.5-5.2); Alkaline Phosphatase 94 U/L (35-105); Anion Gap 17.3 (5-19); Aspartate Amino Transferase 21 U/L (0-32); Blood Urea Nitrogen 23 mg/dL (8-23); Calcium 9.2 mg/dL (8.5-10.5); Carbon Dioxide 23 mmol/L (22-29); Chloride 106 mmol/L (98-107); Creatinine Clr Calc Pharmacy 34.7723; Ferritin 23 ng/mL (15-150); Globulin 3.3 g/dL (1.3-4.6); Glucose 92 mg/dL (65-115); Iron 68 ug/dL (37-145); Osmolality Calculated 297 mOsm/kg (285-295); Potassium 4.3 mmol/L (3.5-5.1); Sodium 142 mmol/L (136-145); Total Iron Binding Capacity 334 mcg/dl; Total Protein 7.4 g/dL (6.6-8.7); Unsaturated Iron Binding 266 ug/dL (112-347)
[2025-03-05 12:30] LABS: Vitamin B12 840 pg/mL (232-1245)
== END 2025-03-20 23:59 | disposition home or self-care (01) ==
PROVIDERS: Internal Medicine Medical Oncology; PCP Nurse Practitioner Family; Visit Provider Nurse Practitioner
DX: D50.9 Iron deficiency anemia, unspecified (principal); U07.1 COVID-19; I10 Essential (primary) hypertension; K59.09 Other constipation; E78.5 Hyperlipidemia, unspecified; R03.0 Elevated blood-pressure reading, without diagnosis of hypertension; L98.8 Other specified disorders of the skin and subcutaneous tissue; Z79.899 Other long term (current) drug therapy
CPT/HCPCS: 36415; 80053; 82607; 82728; 82746; 83540; 83550; 85025; 99214

== ENCOUNTER 2025-06-04 13:00 | Oncology outpatient (recurring) (ONCR) | payer MEDICARE, SELFPAY ==
[2025-06-04 14:06] LABS: Hematocrit 39.6 % (36-47); Hemoglobin 12.50 g/dL (11.27-16.99); Mean Corpuscular HGB Conc 31.6 g/dL (30-55); Mean Corpuscular Hemoglobin 27.7 pg (27-33); Mean Corpuscular Volume 87.6 fl (85-98); Nucleated Red Blood Cells % 0 %; Platelet Count 232 10^3/cmm (157-399); Red Blood Count 4.52 10^6/uL (3.85-5.65); White Blood Count 7.15 10^3/uL (3.29-11.43)
[2025-06-04 14:36] LABS: Alanine Aminotransferase 10 U/L (0-33); Albumin Level 4.2 g/dL (3.5-5.2); Alkaline Phosphatase 89 U/L (35-105); Anion Gap 17.3 (5-19); Aspartate Amino Transferase 15 U/L (0-32); Blood Urea Nitrogen 24 mg/dL (8-23); Calcium 9.5 mg/dL (8.5-10.5); Carbon Dioxide 23 mmol/L (22-29); Chloride 105 mmol/L (98-107); Creatinine Clr Calc Pharmacy 33.4972; Ferritin 27 ng/mL (15-150); Globulin 3.4 g/dL (1.3-4.6); Glucose 89 mg/dL (65-115); Iron 79 ug/dL (37-145); Osmolality Calculated 296 mOsm/kg (285-295); Potassium 4.3 mmol/L (3.5-5.1); Sodium 141 mmol/L (136-145); Total Iron Binding Capacity 342 mcg/dl; Total Protein 7.6 g/dL (6.6-8.7); Unsaturated Iron Binding 263 ug/dL (112-347)
[2025-06-04 14:51] LABS: Vitamin B12 920 pg/mL (232-1245)
== END 2025-06-20 23:59 | disposition home or self-care (01) ==
PROVIDERS: PCP Nurse Practitioner Family; Visit Provider Internal Medicine
DX: D64.9 Anemia, unspecified (principal); U07.1 COVID-19
CPT/HCPCS: 36415; 80053; 82607; 82728; 82746; 83540; 83550; 85025; 85045; 99213

== ENCOUNTER → 2025-07-23 14:21 | Outpatient (BNVA) | payer MEDICARE, SELFPAY | PROVIDERS: PCP Nurse Practitioner Family; Visit Provider Podiatrist Foot & Ankle Surgery | DX: M25.572 Pain in left ankle and joints of left foot (principal); G89.29 Other chronic pain; M21.062 Valgus deformity, not elsewhere classified, left knee; M25.372 Other instability, left ankle; M76.822 Posterior tibial tendinitis, left leg; R26.81 Unsteadiness on feet | CPT/HCPCS: 73610; 99204 ==